=== PATIENT | female | born 1985 | race Two or more races ===

== ENCOUNTER 2017-05-24 17:10 | Emergency (ER) | payer MEDICAID, OTHER ==
--- NOTE | 2017-05-24 18:07 | EDPHY ---
H & P Stated Complaint: 2 months STEIN/ 2 weeks dizzy and nausea/ Time Seen by Provider: 05/24/17 18:06 - Personal History LMP (Females 10-55): Over 28 Days Ago Current Tetanus/Diphtheria Vaccine: Yes - Medical/Surgical History Hx Asthma: No Hx Chronic Respiratory Disease: No Hx Diabetes: No Hx Cardiac Disease: No Hx Renal Disease: No Hx Cirrhosis: No Hx Alcoholism: No Hx HIV/AIDS: No Hx Splenectomy or Spleen Trauma: No Other PMH: denies - Social History Smoking Status: Never smoked Constitutional: Initial Vital Signs Temperature (C) 36.9 C 05/24/17 17:30 Heart Rate 68 05/24/17 17:30 Respiratory Rate 18 05/24/17 17:30 Blood Pressure 111/76 05/24/17 17:30 O2 Sat (%) 97 05/24/17 17:30 O2 Delivery Mode Room Air Allergies/Adverse Reactions: No Known Allergies Allergy (Verified 05/24/17 17:29) Home Medications: Medication Instructions Recorded Antidepressants 05/24/17 Medical Decision Making - Diagnostics Imaging Results: Imaging Impressions Head CT 05/24/17 18:14 Impression: 1. Right maxillary sinus 2-cm mucous retention cyst or polyp. 2. Otherwise, normal brain, without and with contrast enhancement. 3. No acute hemorrhage, hydrocephalus, mass effect, or enhancing lesions. 4. Consider MRI brain, if there is continued clinical concern. Findings and recommendations discussed with Emergency Department physician, Luca Nguyen M.D., at 1958 hours, on May 24, 2017. Final report concurs with initial preliminary interpretation. Imaging: Discussed imaging studies w/ call manager Radiologist ED Course/Re-evaluation: CHIEF COMPLAINT: Headaches. HISTORY OF PRESENT ILLNESS: This patient is a Danish-speaking 31 year old female complaining of persistent headaches over the last two months and dizziness and nausea onset two weeks ago. She has seen her primary care provider, and was prescribed Prozac and Trazodone for symptom relief. Her symptoms have not resolved. She has felt increased depression lately; her brother three months ago. She does see a psychologist for management of her depression. She is also concerned regarding a growth or lump she has noted on the back of her neck recently. No fever, chills, vomiting, or other associated symptoms. HPI obtained primarily from mainframe analyst at bedside. REVIEW OF SYSTEMS: A 10 point review of systems was performed and is negative with the exception of the elements mentioned in the history of present illness. PHYSICAL EXAM: HR, BP, O2 Sat, RR. Temp noted General Appearance: Alert, well hydrated, appropriate, and non-toxic appearing. Head: Atraumatic without scalp tenderness or obvious injury Eyes: Pupils equal, round, reactive to light and accommodation, EOMI, no trauma , no injection. Ears: Clear bilaterally, no perforation, normal landmarks Nose: Atraumatic, no rhinorrhea, clear. Throat: There is no erythema or exudates, no lesions, normal tonsils, mucus membranes moist. Neck: Supple, 2+ carotid upstroke, nontender, no lymphadenopathy. Respiratory: No retractions, no distress, no wheezes, and no accessory muscle use. Lungs are clear to auscultation bilaterally. Cardiovascular: Regular rate and rhythm, no murmurs, rubs, or gallops. Bilateral carotid, radial, dorsalis pedis, and posterior tibial pulses intact. Good capillary refill all extremities. Gastrointestinal: Abdomen is soft, nontender, non-distended, no masses, no rebound, no guarding, no peritoneal signs. Musculoskeletal: Normal active ROM of all extremities, atraumatic. Neurological: Alert, appropriate, and interactive. The patient has normal DTRs and non-focal cranial nerves, motor, sensory, and cerebellar exam. Skin: No rashes, good turgor, no nodules on palpation. Past medical history: Denies Past surgical history: Noncontributory Family history: Noncontributory Social history: . and child at bedside. Lives in [place]. DIFFERENTIAL DIAGNOSIS: The differential diagnosis for the patient's headache included but was not limited to subarachnoid hemorrhage, migraine headache, tension headache and infectious causes such as meningitis, pharyngitis and sinusitis. MEDICAL DECISION MAKIN31 year old female presents with 2 month history of headaches and 2 week history of dizziness and nausea. Plan for Istat and CT head with and without contrast. Labs unremarkable. 19:[address] Torres, radiologist. Head CT negative for acute processes. Plan to discharge home in good condition with followup with neurology. Return precautions discussed. The patient is comfortable with this plan. - Data Points Laboratory Results: 05/24/17 05/24/17 18:35 18:34 POC Hgb 15.0 gm/dL gm/dL (12.6-16.3) POC Hct 44 % % (38-47) POC Sodium 144 mEq/L mEq/L (134-144) POC Potassium 3.6 mEq/L mEq/L (3.3-5.0) POC Chloride 105 mEq/L mEq/L (97-110) POC BUN 12 mg/dL mg/dL (7-23) POC Creatinine 0.8 mg/dL mg/dL (0.6-1.0) POC Glucose 84 mg/dL mg/dL (70-100) Beta HCG, Qual NEGATIVE Point of Care Test Results: 05/24/17 18:34 POC Sodium 144 POC Potassium 3.6 POC Chloride 105 POC BUN 12 POC Creatinine 0.8 POC Glucose 84 Departure - Departure Disposition: Home, Routine, Self-Care Clinical Impression: Dizziness Chronic headache Qualifiers: Headache type: unspecified Intractability: not intractable Qualified Code(s): R51 - Headache Condition: Good Instructions: Dizziness (ED), General Headache (ED) Additional Instructions: 1. Follow up with your primary care physician and with a neurologist for further evaluation of your headaches and dizziness. We have referred you to our neurology group supervisor electronics assembly. 2. Return to the emergency department for worsening headache, nausea, vomiting, numbness, weakness, neck pain, fever or other concerns. 1. Aung jordan de seguimiento con mcbride medico de atencion primaria y con un neurologo para abraham mayor evaluacion de leidy ana de flakito y mareos. Le hemos referido a nuestro allison de neurologia de nichole. 2. Regrese al departamento de emergencias si empeora mcbride dolor de flakito, nauseas, vomitos, entumecimiento, debilidad, dolor de jennifer, fiebre u otras preocupacions. Referrals: Joanna Cuellar PA [Primary Care Provider] - As per Instructions [facility] [Outside] - As per Instructions Print Language: Danish Report Scribed for: Luca Nguyen Report Scribed by: Natasha Rodriguez Date of Report: 05/24/17 Time of Report: 19:26
[2017-05-24] MEDS ORDERED: IOPAMIDOL (ISOVUE-300) 100 ML BTL ONE (19:26)
[2017-05-24 20:33] VITALS: BP 105/77; PULSE 69; RESP 16; TEMP 98.1; O2SAT 99
== END 2017-05-24 20:33 | disposition home or self-care (01) ==
DX: R51 Headache (principal); R42 Dizziness and giddiness
CPT/HCPCS: 82947-QW; Q9967

== ENCOUNTER 2018-05-10 19:18 | Observation (INO) | payer MEDICAID, OTHER ==
--- NOTE | 2018-05-10 20:21 | EDPHY ---
HPI/HX/ROS/PE/MDM Narrative: CHIEF COMPLAINT: Left-sided numbness and paresthesias HISTORY OF PRESENT ILLNESS: This patient is a 32 year-old Citizen Of [place]-speaking female complaining of left-sided numbness and paresthesias. One week ago, she developed numbness and paresthesias in her left hand only. Today around 10:00am, this sensation spread to her entire left arm. She went to [facility] for evaluation. At that time, she complained of word-finding difficulty and left-sided facial numbness. On her way here around 19:00, her left leg became numb and she developed some nausea. She endorses a mild headache. She endorses confusion as well; for instance she used a microwave today but forgot what she was doing and ran the food twice, burning it. She denies any pain. She feels mildly anxious about being in the hospital. Additionally, she states that she had several severe headaches two months ago. her current headache is not so severe. No fever, chills, chest pain, shortness of breath, palpitations, vomiting, diarrhea, urinary complaints, lightheadedness. REVIEW OF SYSTEMS: Aside from elements discussed in the HPI, a comprehensive 10-point review of systems was reviewed and is negative. PAST MEDICAL HISTORY: Denies. SOCIAL HISTORY: Works at home. Family at bedside. Lives in [place]. . VITAL SIGNS: Reviewed by me GENERAL: Well-developed, well-nourished, slightly tearful, anxious. HEENT: Atraumatic. Eyes: No icterus, no injection. EOMI, no nystagmus. PERRL. Mouth: moist mucous membranes. No erythema or lesions. Neck: supple with no adenopathy. LUNGS: Clear to auscultation bilaterally, no wheezes, rhonchi or rales. CARDIAC: Regular rate and rhythm, no rubs, murmurs or gallops. ABDOMEN: Soft, nontender, nondistended, bowel sounds normal. BACK: No CVA tenderness. EXTREMITIES: No trauma. No edema. Range of motion is normal throughout. NEURO: Alert and oriented x3, cranial nerves 2-12 intact except ? tongue deviation to right. Diminished relocation services specialist strength on left. Diminished strenght in left lower leg. No pronator drift. Fluent speech. Able to name common objects. SKIN: Warm and dry, no rash. PSYCHIATRIC: Normal mentation, no agitation. Portions of this note were transcribed by a medical instrument technician. I personally performed a history, physical exam, medical decision making, and confirmed accuracy of information the transcribed note. ED Course: 32 y/o female presents with left-sided paresthesias and numbness and weakness on exam. History and physical exam obtained with mexican food maker (Lluvia) assisting. 20:21 Stroke alert. Plan for CTA head/neck, CT head. Plan for labs including CBC , chemistries, troponin, BHCG, I-stat. 20:50 CT head negative. 20:59 CTA head/neck negative for acute processes, or LVO. 21:[address] Rodriguez, neurologist, who evaluated patient by telemedicine. Recommends admission, evaluation for TIA, treat headache with migraine cocktail. 21:15 Will admit to the hospital for ongoing observation and treatment as needed. MRI ordered. Following MRI, patient reports improvement in her numbness and weakness. Headache remains persistant (meds not administered yet). DW Dr Mosquera. Will admit. MDM: Differential diagnoses the patient's presenting complaints was considered including but not limited to intracranial injury, TIA, ischemic cerebrovascular accident, hemorrhagic cerebrovascular accident, hypoglycemia, complex migraine , metastases, tumor, seizure, or electrolyte abnormality - Data Points Imaging Results: Imaging Impressions Head CT 05/10/18 20:25 Impression: Normal brain. No intracranial hemorrhage or evidence of acute cortical ischemia. Findings discussed with Emergency Department physician, Kacy Villasenor M.D., on May 10, 2018 at 2049. Head CTA 05/10/18 20:26 Impression: 1. Normal intracranial arterial circulation. No evidence of embolic disease or aneurysm. 2. Patent venous system. Findings discussed with Emergency Department physician, Kacy Villasenor M.D., on May 10, 2018 at E:RH/amm Neck CTA 05/10/18 20:26 Impression: Normal carotid and vertebral arteries. No dissection or occlusion. Measurement of carotid stenosis is based on the residual internal carotid diameter with [place] Symptomatic Carotid Endarterectomy Trial (NASCET) based stenosis levels. Findings discussed with Emergency Department physician, Kacy Villasenor M.D., on May 10, 2018 at 2058 hours. Brain MRI 05/10/18 21:11 Impression: Normal. No evidence of acute ischemia or white matter disease. Findings discussed with Emergency Department physician, Dr. Giovani Goff at 05/10/2018 22:35. Imaging: Discussed imaging studies w/ outbound call center representative Radiologist Laboratory Results: Laboratory Results 05/10/18 20:15 05/10/18 20:15 05/10/18 05/10/18 05/10/18 21:18 20:26 20:15 WBC RBC Hgb POC Hgb 13.9 gm/dL gm/dL (12.6-16.3) Hct POC Hct 41 % % (38-47) MCV MCH MCHC RDW Plt Count MPV Neut % (Auto) Lymph % (Auto) Keith % (Auto) Eos % (Auto) Baso % (Auto) Nucleat RBC Rel Count Absolute Neuts (auto) Absolute Lymphs (auto) Absolute Monos (auto) Absolute Eos (auto) Absolute Basos (auto) Absolute Nucleated RBC Immature Gran % Immature Gran # PT INR APTT POC Sodium 145 mEq/L mEq/L (135-145) Sodium POC Potassium 3.6 mEq/L mEq/L (3.3-5.0) Potassium POC Chloride 111 mEq/L H mEq/L (97-110) Chloride Carbon Dioxide Anion Gap POC BUN 11 mg/dL mg/dL (7-23) BUN Creatinine POC Creatinine 0.6 mg/dL mg/dL (0.6-1.0) Estimated GFR Glucose POC Glucose 97 mg/dL mg/dL (70-100) Calcium POC Troponin I 0.01 ng/mL ng/mL (0.00-0.08) Beta HCG, Qual NEGATIVE 05/10/18 05/10/18 05/10/18 20:15 20:15 20:15 WBC 8.69 10^3/uL 10^3/uL (3.80-9.50) RBC 4.61 10^6/uL 10^6/uL (4.18-5.33) Hgb 13.4 g/dL g/dL (12.6-16.3) POC Hgb Hct 39.3 % % (38.0-47.0) POC Hct MCV 85.2 fL fL (81.5-99.8) MCH 29.1 pg pg (27.9-34.1) MCHC 34.1 g/dL g/dL (32.4-36.7) RDW 13.9 % % (11.5-15.2) Plt Count 288 10^3/uL 10^3/uL (150-400) MPV 11.5 fL fL (8.7-11.7) Neut % (Auto) 56.8 % % (39.3-74.2) Lymph % (Auto) 35.9 % % (15.0-45.0) Keith % (Auto) 5.3 % % (4.5-13.0) Eos % (Auto) 1.2 % % (0.6-7.6) Baso % (Auto) 0.6 % % (0.3-1.7) Nucleat RBC Rel Count 0.0 % % (0.0-0.2) Absolute Neuts (auto) 4.94 10^3/uL 10^3/uL (1.70-6.50) Absolute Lymphs (auto) 3.12 10^3/uL H 10^3/uL (1.00-3.00) Absolute Monos (auto) 0.46 10^3/uL 10^3/uL (0.30-0.80) Absolute Eos (auto) 0.10 10^3/uL 10^3/uL (0.03-0.40) Absolute Basos (auto) 0.05 10^3/uL 10^3/uL (0.02-0.10) Absolute Nucleated RBC 0.00 10^3/uL 10^3/uL (0-0.01) Immature Gran % 0.2 % % (0.0-1.1) Immature Gran # 0.02 10^3/uL 10^3/uL (0.00-0.10) PT 13.6 SEC SEC (12.0-15.0) INR 1.02 (0.83-1.16) APTT 32.1 SEC SEC (23.0-38.0) POC Sodium Sodium 144 mEq/L mEq/L (135-145) POC Potassium Potassium 3.9 mEq/L mEq/L (3.3-5.0) POC Chloride Chloride 108 mEq/L mEq/L (97-110) Carbon Dioxide 23 mEq/l mEq/l (22-31) Anion Gap 13 mEq/L mEq/L (8-16) POC BUN BUN 12 mg/dL mg/dL (7-23) Creatinine 0.6 mg/dL mg/dL (0.6-1.0) POC Creatinine Estimated GFR > 60 Glucose 98 mg/dL mg/dL (70-100) POC Glucose Calcium 9.3 mg/dL mg/dL (8.5-10.4) POC Troponin I Beta HCG, Qual Medications Given: Discontinued Medications Dexamethasone (Decadron Injection) 10 mg IVP EDNOW ONE Stop: 05/10/18 22:23 Last Admin: 05/10/18 22:28 Dose: Not Given Diphenhydramine HCl (Benadryl Injection) 25 mg IVP EDNOW ONE Stop: 05/10/18 22:23 Last Admin: 05/10/18 22:34 Dose: 25 mg Sodium Chloride (Ns) 1,000 mls @ 0 mls/hr IV ONCE ONE; Wide Open PRN Reason: Protocol Stop: 05/10/18 21:10 Last Admin: 05/10/18 21:12 Dose: 1,000 mls Ketorolac Tromethamine (Toradol) 15 mg IVP EDNOW ONE Stop: 05/10/18 22:23 Last Admin: 05/10/18 22:35 Dose: 15 mg Ondansetron HCl (Zofran) 4 mg IVP EDNOW ONE Stop: 05/10/18 22:24 Last Admin: 05/10/18 22:35 Dose: 4 mg Point of Care Test Results: Chemistry 05/10/18 05/10/18 21:18 20:26 POC Sodium 145 mEq/L mEq/L (135-145) POC Potassium 3.6 mEq/L mEq/L (3.3-5.0) POC Chloride 111 mEq/L H mEq/L (97-110) POC BUN 11 mg/dL mg/dL (7-23) POC Creatinine 0.6 mg/dL mg/dL (0.6-1.0) POC Glucose 97 mg/dL mg/dL (70-100) POC Troponin I 0.01 ng/mL ng/mL (0.00-0.08) ISTAT H&H 05/10/18 20:26 POC Hgb 13.9 gm/dL gm/dL (12.6-16.3) POC Hct 41 % % (38-47) General Time Seen by Provider: 07/31/18 20:07 Initial Vital Signs: Initial Vital Signs Temperature (C) 36.5 C 05/10/18 19:57 Heart Rate 72 05/10/18 19:57 Respiratory Rate 18 05/10/18 19:57 Blood Pressure 113/68 05/10/18 19:57 O2 Sat (%) 96 05/10/18 19:57 O2 Delivery Mode Room Air Allergies/Adverse Reactions: No Known Allergies Allergy (Verified 05/24/17 17:29) Home Medications: Medication Instructions Recorded Antidepressants 05/24/17 Departure - Departure Disposition: [facility] Inpatient Acute Clinical Impression: Weakness of left lower extremity, Weakness of left upper extremity, Rule out stroke Condition: Fair
[2018-05-10 20:47] LABS: PLATELET COUNT 288 10^3/uL (150-400)
[2018-05-10 20:54] LABS: INR 1.02 (0.83-1.16); PROTIME(PATIENT) 13.6 SEC (12.0-15.0)
--- NOTE | 2018-05-10 21:05 | PDCONSULT ---
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 she then has had increased left cheek and arm and leg numbness. the patient states the left hand numbness started last wednesday or wednesday. symptoms with the hand have been constant since then. today, the numbness has progressed to the arm and left leg also now. she has some blurry vision also. Associated Symptoms: headache, light sensitivity, sound sensitivity Quality: (no word finding difficulty) PM-FH- Past Medical History: Depression, Migraine, on oral contraceptives Social History: non-smoker, non-drinker Medications: denies medications Exam Vitals: vital signs reviewed NIHSS Time (): 05/10/2018 21:04 LOC 1a: 0 = Alert; keenly responsive LOC 1b: 0 = Answers both questions correctly LOC Commands: 0 = Performs both tasks correctly Best Gaze: 0 = Normal Visual: 0 = No visual loss Facial Palsy: 0 = Normal symmetrical movements Motor Arm L: 0 = No drift; limb holds 90 (or 45) degrees for full 10 seconds Motor Arm R: 0 = No drift; limb holds 90 (or 45) degrees for full 10 seconds Motor Leg L: 0 = No drift; leg holds 30-degree position for full 5 seconds Motor Leg R: 0 = No drift; leg holds 30-degree position for full 5 seconds Limb Ataxia: 0 = Absent Sensory: 1 = Aygb-me-[id number] sensory loss; patient feels pinprick is less sharp or is dull on the affected side, but patient is aware of being touched Best Language: 0 = No aphasia; normal Dysarthria: 0 = Normal Extinction + Inattention: 0 = No abnormality NIHSS: [address]: no bleed Assessment Assessment: Complex Migraine, vs stroke with prolonged duration Plan Lytic/Intervention: NOT IV or IA candidate tPA Exclusion (< 3hr window): Time of onset unclear Blood Pressure Managment: Labetolol Target Blood Pressure: SBP < 220 Labs: Comprehensive metabolic panel, ESR, HgbA1c, Lipid Panel, UDS Imaging: CTA Head and Neck STAT, Please call me back with results VERA if there are signs of occlusion or dissection, MRI brain without Diagnostic test: echocardiogram with bubble Therapy/Eval: NPO until cleared by swallow evaluation, PT/OT, Speech/Swallow therapy consult Medication: Migraine cocktail: Toradol 30 mg IV, Benadryl 25 mg IV, antiemetic IV VTE Prophylaxis: SCD Other: LDL goal less than 70, permissive HTN, telemetry monitoring, I have discussed my recommendations with the referring provider Disposition: admit Logistics Telemedicine: Interactive 2 way audio and visual telecommunication technology was utilized during this visit. Provider Location: [place]
[2018-05-10] MEDS ORDERED: NS 1,000 ML IV ONE (21:09)
[2018-05-10] MEDS ORDERED: KETOROLAC 15 MG/1 ML SDV IVP ONE (22:22)
[2018-05-10] MEDS ORDERED: DEXAMETHASONE 10 MG/ML VIAL IVP ONE (22:22)
[2018-05-10] MEDS ORDERED: ONDANSETRON 4 MG/2 ML VIAL IVP PRN (22:22)
[2018-05-10] MEDS ORDERED: ACETAMINOPHEN 325 MG TAB PO PRN (22:22)
[2018-05-10] MEDS ORDERED: ONDANSETRON DISINTEGRATING 4 MG TAB PO PRN (22:22)
[2018-05-10] MEDS ORDERED: ONDANSETRON 4 MG/2 ML VIAL IVP ONE (22:23)
[2018-05-10] MEDS ORDERED: ONDANSETRON 4 MG/2 ML VIAL ONE (22:29)
[2018-05-10] MEDS ORDERED: KETOROLAC 15 MG/1 ML SDV ONE (22:30)
--- NOTE | 2018-05-11 01:06 | PDGENHP ---
History and Physical - Chief Complaint Numbness - History of Present Illness 32 yo F w/ hx of migraines presents with L-sided numbness. Patient is english speaking only but translation was provided by family and they denies recreational assistant services. Patient tells me She first noticed numbness on the posterior aspect of L hand and forearm about 8 days ago. Until today, she denies any other neurologic symptoms including headache, weakness, and visual disturbance. Today, however, her symptoms progressed and the numbness spread to involve her L face, entire L arm, and L leg below her knee. In addition, she developed headache and mild visual blurring. She denies prior similar symptoms. By the time of my evaluation (and after receiving migraine cocktail), most symptoms has resolved aside from L forearm numbness and mild L cheeck numbness. While in the ED [facility] evaluated the patient and did not recommend tPA. CTA of head/neck as well as brain MRI were unremarkable. Patient is being admitted for completion of possible stroke work-up and neurology consultation. Case discussed with ED physician Dr. Villasenor, previous records reviewed. History Information - Allergies/Home Medication List Allergies/Adverse Reactions: No Known Allergies Allergy (Verified 05/24/17 17:29) Home Medications: Antidepressants 05/24/17 [Last Taken Unknown] I have personally reviewed and updated: family history, medical history - Past Medical History migraines - Surgical History Additional surgical history: Ovariectomy 2/2 cyst - Family History Additional family history: Denies family hx of migraines or stroke - Social History Smoking Status: Never smoked Review of Systems Review of Systems: ROS: 10pt was reviewed & negative except for what was stated in HPI & below Physical Exam Physical Exam: Temp Pulse Resp BP Pulse Ox 37.2 C 70 16 113/80 97 05/11/18 00:56 05/11/18 00:56 05/11/18 00:56 05/11/18 00:56 05/11/18 00:56 Constitutional: no apparent distress, not in pain Eyes: PERRL, EOMI Ears, Nose, Mouth, Throat: moist mucous membranes, no oral mucosal ulcers Cardiovascular: regular rate and rhythym, no murmur, rub, or gallop Respiratory: no respiratory distress, no rales or rhonchi Gastrointestinal: normoactive bowel sounds, soft, non-tender abdomen Skin: warm, normal color Musculoskeletal: full muscle strength, no muscle tenderness Neurologic: AAOx3, numbness (L forearm, L cheek), other (NIHSS 1), No sensation intact bilaterally, No weakness, No facial droop Psychiatric: interacting appropriately, not anxious Lab Data & Imaging Review 05/10/18 20:15 05/10/18 20:15 WBC 8.69 10^3/uL (3.80-9.50) 05/10/18 20:15 RBC 4.61 10^6/uL (4.18-5.33) 05/10/18 20:15 Hgb 13.4 g/dL (12.6-16.3) 05/10/18 20:15 POC Hgb 13.9 gm/dL (12.6-16.3) 05/10/18 20:26 Hct 39.3 % (38.0-47.0) 05/10/18 20:15 POC Hct 41 % (38-47) 05/10/18 20:26 MCV 85.2 fL (81.5-99.8) 05/10/18 20:15 MCH 29.1 pg (27.9-34.1) 05/10/18 20:15 MCHC 34.1 g/dL (32.4-36.7) 05/10/18 20:15 RDW 13.9 % (11.5-15.2) 05/10/18 20:15 Plt Count 288 10^3/uL (150-400) 05/10/18 20:15 MPV 11.5 fL (8.7-11.7) 05/10/18 20:15 Neut % (Auto) 56.8 % (39.3-74.2) 05/10/18 20:15 Lymph % (Auto) 35.9 % (15.0-45.0) 05/10/18 20:15 [place] % (Auto) 5.3 % (4.5-13.0) 05/10/18 20:15 Eos % (Auto) 1.2 % (0.6-7.6) 05/10/18 20:15 Baso % (Auto) 0.6 % (0.3-1.7) 05/10/18 20:15 Nucleat RBC Rel Count 0.0 % (0.0-0.2) 05/10/18 20:15 Absolute Neuts (auto) 4.94 10^3/uL (1.70-6.50) 05/10/18 20:15 Absolute Lymphs (auto) 3.12 10^3/uL (1.00-3.00) H 05/10/18 20:15 Absolute Monos (auto) 0.46 10^3/uL (0.30-0.80) 05/10/18 20:15 Absolute Eos (auto) 0.10 10^3/uL (0.03-0.40) 05/10/18 20:15 Absolute Basos (auto) 0.05 10^3/uL (0.02-0.10) 05/10/18 20:15 Absolute Nucleated RBC 0.00 10^3/uL (0-0.01) 05/10/18 20:15 Immature Gran % 0.2 % (0.0-1.1) 05/10/18 20:15 Immature Gran # 0.02 10^3/uL (0.00-0.10) 05/10/18 20:15 PT 13.6 SEC (12.0-15.0) 05/10/18 20:15 INR 1.02 (0.83-1.16) 05/10/18 20:15 APTT 32.1 SEC (23.0-38.0) 05/10/18 20:15 POC Sodium 145 mEq/L (135-145) 05/10/18 20:26 Sodium 144 mEq/L (135-145) 05/10/18 20:15 POC Potassium 3.6 mEq/L (3.3-5.0) 05/10/18 20:26 Potassium 3.9 mEq/L (3.3-5.0) 05/10/18 20:15 POC Chloride 111 mEq/L (97-110) H 05/10/18 20:26 Chloride 108 mEq/L (97-110) 05/10/18 20:15 Carbon Dioxide 23 mEq/l (22-31) 05/10/18 20:15 Anion Gap 13 mEq/L (8-16) 05/10/18 20:15 POC BUN 11 mg/dL (7-23) 05/10/18 20:26 BUN 12 mg/dL (7-23) 05/10/18 20:15 Creatinine 0.6 mg/dL (0.6-1.0) 05/10/18 20:15 POC Creatinine 0.6 mg/dL (0.6-1.0) 05/10/18 20:26 Estimated GFR > 60 05/10/18 20:15 Glucose 98 mg/dL (70-100) 05/10/18 20:15 POC Glucose 97 mg/dL (70-100) 05/10/18 20:26 Calcium 9.3 mg/dL (8.5-10.4) 05/10/18 20:15 POC Troponin I 0.01 ng/mL (0.00-0.08) 05/10/18 21:18 Beta HCG, Qual NEGATIVE 05/10/18 20:15 Imaging Review: Imaging Impressions Head CT 05/10/18 20:25 Impression: Normal brain. No intracranial hemorrhage or evidence of acute cortical ischemia. Findings discussed with Emergency Department physician, Kacy Villasenor M.D., on May 10, 2018 at 2049. Head CTA 05/10/18 20:26 Impression: 1. Normal intracranial arterial circulation. No evidence of embolic disease or aneurysm. 2. Patent venous system. Findings discussed with Emergency Department physician, Kacy Villasenor M.D., on May 10, 2018 at E:RH/amm Neck CTA 05/10/18 20:26 Impression: Normal carotid and vertebral arteries. No dissection or occlusion. Measurement of carotid stenosis is based on the residual internal carotid diameter with [place] Symptomatic Carotid Endarterectomy Trial (NASCET) based stenosis levels. Findings discussed with Emergency Department physician, Kacy Villasenor M.D., on May 10, 2018 at 2058 hours. Brain MRI 05/10/18 21:11 Impression: Normal. No evidence of acute ischemia or white matter disease. Findings discussed with Emergency Department physician, Dr. Givoani Goff at 05/10/2018 22:35. Assessment & Plan Assessment: 32 yo F w/ hx of migraines p/w left sided numbness likely representing complex migraine. Plan: 1. Numbness - L arm numbness x1 week progressing to involve face and LLE on day of presentation. Patient does have history of migraines but has never experienced similar symptoms prior to this. CT, CTA Head/Neck, and brain MRI have not shown acute abnormality. Patient was evaluated by [facility] and tPA was not recommended. - Admit for observation - Monitor on telemetry - PT/OT/BRIQUETTE MACHINE OPERATOR evaluations - TTE with bubble ordered - Will check A1c, lipid panel with morning labs - Neurology consult placed Diet - Regular pending swallow evaluations Code - Full Ppx - SCDs Dispo - Admit under observation status
[2018-05-11 05:14] LABS: PLATELET COUNT 253 10^3/uL (150-400)
[2018-05-11 08:17] VITALS: BP 109/62
--- NOTE | 2018-05-11 08:56 | GCON ---
[f rep st] CONSULTATION NEUROLOGIC CONSULTATION REASON FOR CONSULTATION: The patient is a 32-year-old woman who I am asked to see in neurologic cons ultation regarding headache and left-sided numbness or weakness. HISTORY OF PRESENT ILLNESS: The history is obtained from review of the medical record, as well as di rect discussions with the patient and her in the setting of a insurance underwriter. She says she has h ad episodes of severe headaches over the years, which have been as long as 6 months of headache but a lso episodic headaches characterized by severe pain at 9/10, light sensitivity, sound sensitivity, an d sometimes nausea. She has had some previous evaluations for which she says she was told it is all related to stress. She acknowledges that she deals with significant stress. She has 3 children unde r the age of 7, and her eldest child apparently has some developmental delay problems. She has been on antidepressant therapy in the past, but she says her primary care has wanted her to consider getti ng off that. She is not currently taking antidepressant therapy. She says she is having significant mood fluctuations where she can become very frustrated and also very sad. She is wondering if there is anything that can be done for that. For this particular evolution of symptoms, it started in the last week when she was noticing abnormal sensations in her left hand and forearm and then, on the day of admission, started to feel some head ache and a little bit of visual disturbance, as well as some numbness in the left leg and into her le ft face. She has never had this particular phenomenon before. She had received medication in the em ergency department, which did help some of her headache, but she was still having some left-sided num bness. She went through the stroke evaluation process and had negative CT angiogram of the head and neck, negative head CT, and normal brain MRI. She was not thought to be likely having stroke, theref ore not a TPA candidate. However, she was admitted for further observation and monitoring and reques t for neurologic consultation today. FAMILY HISTORY: Notable for a sister who deals with probable migraine. SOCIAL HISTORY: She is . She has 3 children as outlined above. She considers herself to be under very high stress much of the time. No smoking or alcohol. The patient does have a history of depression. There was an emergency room visit in May of 2017, where she presented complaining of persistent headaches for 2 months and dizziness and nausea 2 weeks prior to that evaluation. She has been on Prozac and trazodone around that time. She was not getti ng better. She was describing increasing depression and apparently has a psychologist she had been milo barfield at the time. She had unremarkable head CT at that time. The reported medications on admission had been antidepressant, although she says she is not currently taking one. ALLERGIES: None. TEN-POINT REVIEW OF SYSTEMS: Unremarkable except for that noted above. At this point, she is feelin g almost back to normal except for just a little bit of some numbness in the left hand. PHYSICAL EXAMINATION: VITAL SIGNS: Blood pressure is 109/62, pulse is 66, respirations 18, temperat ure 36.9. GENERAL: She is well developed in no acute distress. EYES: Clear. NECK: Supple. No b ruits or masses. NEUROLOGIC: She is alert and attentive, but has a depressed affect. She will og odically smile. She is speaking in Lebanese through the insurance underwriter. She acknowledges feelings of sad ness and depression and mood swings. Pupils 3 mm and reactive. Extraocular movements are intact. F acial sensation is mildly diminished on the right compared to the left. Hearing is preserved. Motor exam reveals normal muscle bulk and tone with 5/5 strength. She likewise feels slightly diminished sensory perception in the left arm relative to the right and normal sensation in the lower extremitie s. Reflexes are 2+ and symmetric with no pathologic reflexes. IMPRESSION: Total unit time of 70 minutes with greater than 50% of the time counseling, coordination of care. This patient almost certainly has migraine headaches and depression. These symptoms descr ibed over the last week are not a typical story for migraine, but every other test has been negative for any primary ischemic cause, so I do not think she has had transient ischemic attack or warning fo r stroke in that sense. A complex migraine phenomena in the setting of possible somatization with he r depression are certainly part of the challenging differential diagnosis. I do not think she requir es antiplatelet therapy or any other secondary stroke prophylaxis given the low suspicion for that ca use. PLAN: She needs more aggressive management of anxiety and depression and hopefully, can resume that through [facility] with either pharmacologic and/or psychological support. I think she does not need prophylaxis for migraines, because they are fairly rare. She should be treated with abortive t herapy, and I have asked her to talk to Dr. Cuellar about management strategies to include the Triptan s. We talked a bit about how to take medication, and acute therapy would be appropriate for when she does get migraine. She certainly is free to see me in the office if she chooses, but most of this s hould be able to be managed through primary care. They seem comfortable with my explanations. We wi ll try to provide her some literature in Lebanese about migraine and management strategies. From my s tandpoint, these very mild deficits she has now would not preclude discharge from the hospital. Comp leting the workup with an echocardiogram is appropriate. /[id number]/MODL
[2018-05-11] MEDS ORDERED: SUMAtriptan 25 MG TAB PO PRN (09:20)
--- NOTE | 2018-05-11 10:43 | ECHO ---
[email or web address] [address] Main: [phone] Fax: Transthoracic Echocardiogram Name: HE REYNOLDS MR#: [id number] Study Date: 05/11/2018 Study Time: 09:27 AM Date of : 1985 Age: 32 year(s) Height: 157.5 cm (62 in.) Weight: 59.87 kg (132 lb.) BSA: 1.6 m2 Gender: Female Examination: Echo with Agitated Saline Indication: Ischemic Stroke Image Quality: Adequate Contrast: Requested by: Colt Whipple BP: 109 mmHg/62 mmHg Heart Rate: Rhythm: Indication: Ischemic Stroke Procedure Staff Vice President For Philanthropy: Brigid Bass RDCS Reading Physician: Ashley Sherman MD Requesting Provider: Conclusions: Normal size left ventricle. No LV hypertrophy. Normal global systolic LV function. EF is 64 %. No regional wall motion abnormality. Normal diastolic LV function. Normal size right ventricle. Normal RV function. The left atrium is normal in size. An agitated saline study was performed and was negative for intracardiac shunting. Mild mitral valve regurgitation is present. Mild tricuspid regurgitation is present. The pulmonary artery pressure is normal. No prior echo. No obvious cardiac source of embolism seen. Recommend SITA Measurements: Chambers Valvular Assessment AV/MV Valvular Assessment TV/PV Normal Normal Normal Name Value Range Name Value Range Name Value Range Ao Zenia (2D): 3.0 cm (1.4 cm-2.6 AV Vmax: 1.22 m/s (1 m/s-1.7 TR Vmax: 2.48 mm/s ( - ) cm) m/s) TR PGmax: 25 mmHg ( - ) IVSd (2D): 0.6 cm (0.6 cm-1.1 AV maxP mmHg ( - ) syst. PAP: 30 mmHg ( - ) cm) AV meanP mmHg ( - ) PV Vmax: 0.94 m/s (0.6 m/s-0.9 LVDd (2D): 4.7 cm (3.9 cm-5.3 JANETH (VTI): 2.3 cm ( - ) m/s) cm) MV E Vmax: 0.90 m/s ( - ) PV PGmax: 4 mmHg ( - ) LVDs (2D): 3.0 cm (2.1 cm-4 MV A Vmax: 0.45 m/s ( - ) cm) MV E/A: 2.00 ( - ) LVPWd (2D): 0.7 cm ( - ) MV PHT: 0.059 s ( - ) LVOTd 2.0 cm 2.0 cm mm MVA (PHT): 3.7 s ( - ) LVEF (BP): 64 % (>=55 %) Patient: HE REYNOLDS Study Date: 05/11/2018 Page 1 of 2 09:27 AM RVDd(2D): 2.5 cm (1.9 cm-3.8 cmmm) Continued Measurements: Chambers Valvular Assessment AV/MV Valvular Assessment TV/PV Name Value Name Value Name Value LADs: 2.9 cm MV DecTime: 208 m/s CVP (est.): 5 mmHg LADs Lon.4 cm MV E' Septal: 0.12 m/s LA Area: 11.0 cm2 MV E/E' Septal: 7.70 LA Volume: 30 ml MV E/E' Lateral: 6.00 LA Volume Index: 18.8 ml/m2 RA Area: 13.9 cm2 Additional Vessels Name Value Ao Ascendin.5 cm Inferior Vena Cava: 1.3 cm Findings: Left Ventricle: Normal size left ventricle. No LV hypertrophy. Normal global systolic LV function. EF is 64 %. No regional wall motion abnormality. Normal diastolic LV function. Right Ventricle: Normal size right ventricle. Normal RV function. Left Atrium: The left atrium is normal in size. An agitated saline study was performed and was negative for intracardiac shunting. Right Atrium: The right atrium is normal in size. Mitral Valve: The mitral valve is normal in appearance and function. Mild mitral valve regurgitation is present. No mitral stenosis is present. Aortic Valve: The aortic valve is tri-leaflet. There is no significant aortic valve regurgitation. No aortic valve stenosis is present. Tricuspid Valve: The tricuspid valve is normal in appearance and function. Mild tricuspid regurgitation is present. The pulmonary artery pressure is normal. Right ventricular systolic pressure measures 30mmHg. Pulmonic Valve: The pulmonic valve is normal in appearance and function. There is no pulmonic regurgitation seen. Aorta: The aorta is normal. Normal size aortic root measuring 3.0 cm. Normal size ascending aorta measuring 2.5 cm. IVC: The IVC is normal sized. Pericardium: No pericardial effusion. No pleural effusion. (No Signature Object) Patient: HE REYNOLDS Study Date: 05/11/2018 Page 2 of 2 09:27 AM [id number]
--- NOTE | 2018-05-11 12:09 | ASMTCMCOM ---
CM Note CM Note Notes: Pt was admitted with headache and L sided weakness. She has a hx of migraines, anxiety and depression, and is currently not on an antidepressant. She is North [place] speaking and requires an spanish interpreter/translator. She is followed at [facility]. A follow-up appointment was scheduled for her on Wednesday at 2:45pm and was given this information. Anticipate d/c with no CM needs however will continue to follow for any change in needs. Date Signed: 05/11/2018 12:08 PM Electronically Signed By:AZRA Iglesias
--- NOTE | 2018-05-11 16:02 | ASDISCHSUM ---
Discharge Information Plan Status:Home with No Needs Medically Cleared to Leave:05/11/2018 Discharge Date:05/11/2018 01:35 PM CM D/C Disposition:Home, Routine, Self-Care ADT D/C Disposition:Home, Routine, Self-Care Projected Discharge Date:05/11/2018 01:35 PM Transportation at D/C:Family Discharge Delay Reason: Follow-Up Date:05/11/2018 01:35 PM Discharge Slot: Final Diagnosis: Placement Information Patient Contact Information Contact Name:ALEC Relationship: Address:[address] [place] [address] City:[place] Alternate Phone: [facility]/Zip Code:[place] [address] Email: Financial Information Financial Class:Self-Pay Primary Plan Desc:SELF PAY Primary Plan Number: Secondary Plan Desc: Secondary Plan Number: Assessment Information LACE LACE Length of stay for Answers: Less than 1 day current admission Acuity / Level of Answers: No Care: Did the patient have an inpatient admission? # of Emergency department Answers: 1-2 visits in the last 6 months Social determinants Answers: Mental health diagnosis (anxiety, depression, pers onality disorders, etc.) Score: 4 Date Signed: 05/11/2018 04:00 PM Electronically Signed By:AZRA Iglesias [facility] CM Progress Note CM Note CM Note Notes: Pt was admitted with headache and L sided weakness. She has a hx of migraines, anxiety and depression, and is currently not on an antidepressant. She is Frisian speaking and requires an criminal research specialist. She is followed at [facility]. A follow-up appointment was scheduled for her on Wednesday at 2:45pm and was given this information. Anticipate d/c with no CM needs however will continue to follow for any change in needs. Date Signed: 05/11/2018 12:08 PM Electronically Signed By:AZRA Iglesias Intervention Information
--- NOTE | 2018-05-11 17:57 | PDDCSUM ---
Discharge Summary Discharge Summary: DISCHARGE SUMMARY FOLLOW-UP ITEMS: Arrange outpatient mental health follow-up DATE OF ADMISSION: 05/10/2018 DATE OF DISCHARGE: 05/11/2018 DISCHARGE DIAGNOSES: 1. 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 Depression and anxiety, chronic CONSULTATIONS: Neurology PROCEDURES / IMAGING: Brain MRI demonstrating no abnormalities, echocardiogram demonstrating normal valves, normal ejection fraction, no focal wall motion abnormalities CHIEF COMPLAINT: Acute left upper extremity paresthesias and paresis SUBJECTIVE: Patient is feeling well at time discharge, she reports that her symptoms have completely abated PHYSICAL EXAM ON DISCHARGE: Systolic blood pressure is 110, heart rate 60 70, afebrile overnight, satting on room air, alert awake oriented x3, no apparent distress comma motor strength is 5/5 bilateral upper extremities, sensation intact symmetrically bilateral upper extremities, facial symmetry, alert awake oriented x3 LABS ON DISCHARGE: Hemoglobin A1c 5.5%, LDL 48, creatinine 0.6, potassium 4 HOSPITAL COURSE BY PROBLEM: The patient presented with left upper extremity paresthesias and paresis, most likely secondary to somatization in the setting of anxiety and depression which are under treated. She was fully evaluated from a neurologic perspective, with a brain MRI demonstrating no abnormalities, an echocardiogram demonstrating no abnormalities, and a neuro consultation demonstrating improvement and then subsequent resolution of her symptoms, either related to a complex migraine or somatization with undertreated mental health issues. The patient openly endorses that she has incredible amount of stress in her life secondary to the challenges of caring for 3 children, 1 of which is developmentally delayed, and the patient has a difficult time adhering to her outpatient mental health therapy schedule secondary to the challenges of caring for this child. We discussed this with the patient and her partner, and encouraged her to make some time for herself so that she is able to adequately manage her mental health. We also advised that her symptoms could be related to complex migraine symptoms, and we provided her with a script for sumatriptan to be used as needed. Dr. José Malik saw the patient and did not recommend any additional medication for primary CVA prevention. DISCHARGE MEDICATIONS: Please see official discharge medication reconciliation sheet in chart , sumatriptan as needed. DISCHARGE INSTRUCTIONS: Please follow up with [facility], arrange outpatient mental health follow- up.
== END 2018-05-11 13:35 | disposition home or self-care (01) ==
LOC: F3E 05-11 00:51
PROVIDERS: ADMIT Family Medicine; ATTEND Family Medicine
DX: G43.909 Migraine, unspecified, not intractable, without status migrainosus (principal); R20.2 Paresthesia of skin; F41.8 Other specified anxiety disorders; E86.9 Volume depletion, unspecified
CPT/HCPCS: 82435-PO; 82565-PO; 82947-PO; 84132-PO; 84295-PO; 84484-PO; 84520-PO; 85014-PO; 92523-GN; 97165-GO; G0378; J1200; J1885; J2405